=== PATIENT | female | born 1980 | race Caucasian/White ===

== ENCOUNTER 2018-09-19 07:07 | Inpatient (IN) | payer SELFPAY ==
[~2018-09-19] VITALS: Ht 147.3 cm; Wt 63.5 kg
[2018-09-19 07:43] LABS: BASOPHILS % (AUTO) 0.1 % (0.0-5.0); EOSINOPHILS % (AUTO) 0.9 % (0.0-8.0); HEMATOCRIT 48.3 % (36-48); MEAN CORPUSCULAR HGB CONC 33.4 g/dL (32.0-36.0); MEAN CORPUSCULAR VOLUME 89.9 fL (79-99); MONOCYTES % (AUTO) 3.7 % (3.0-13.0); NEUTROPHILS % (AUTO) 90.3 % (40.0-77.0); NUCLEATED RED BLOOD CELLS 0.1 % (0.0-0.19); PLATELET COUNT (AUTO) 255 K/uL (130-400); RED BLOOD CELL COUNT(AUTO) 5.37 MIL/uL (4.00-5.50); RED CELL DISTRIBUTION WIDTH 13.3 % (11.0-15.5)
[2018-09-19] MEDS ORDERED: MORPHINE SULFATE 4 MG/1ML SYG ONE ×3 (07:49→15:19)
[2018-09-19] MEDS ORDERED: SODIUM CHLORIDE 0.9% 1000ML 1,000 ML IV ONE ×3 (07:49→16:45)
[2018-09-19] MEDS ORDERED: ONDANSETRON HCL 4 MG/2 ML VIAL ONE ×2 (07:49→10:42)
[2018-09-19 07:50] LABS: CREATININE 0.7 mg/dL (0.5-1.5); POTASSIUM 4.2 mmol/L (3.5-5.1)
[2018-09-19 07:55] LABS: ALBUMIN 4.3 g/dL (3.5-5.0); BILIRUBIN,TOTAL 0.9 mg/dL (0.2-1.0)
[2018-09-19] MEDS ORDERED: IOHEXOL 350 MG/ML 100ML INFUS..BTL IV ONE (08:08)
[2018-09-19 10:39] LABS: APPEARANCE,URINE Clear (CLEAR); BILIRUBIN,URINE Negative (NEGATIVE); COLOR,URINE Yellow (YELLOW); GLUCOSE, URINE (UA) Negative (NEGATIVE); KETONES,URINE 40 mg/dL (NEGATIVE); LEUKOCYTE ESTERASE ,URINE Negative (NEGATIVE); NITRATE,URINE Negative (NEGATIVE); OCCULT BLOOD,URINE Negative (NEGATIVE); PROTEIN,URINE Negative (NEGATIVE); UROBILINOGEN,URINE 0.2 mg/dL (0.2-1.0)
[2018-09-19] MEDS ORDERED: FAMOTIDINE/PF 20 MG/2 ML VIAL IV ONE (10:43)
[2018-09-19 10:46] LABS: HCG,QUAL RESULT NEGATIVE (NEGATIVE)
[2018-09-19 10:47] LABS: BACTERIA,URINE Rare /HPF (None Seen); RBC,URINE 0-1 /HPF (0-1); SQUAMOUS EPITHELIAL CELL,UR Rare /HPF (0-2); WBC,URINE 0-1 /HPF (0-1)
[2018-09-19] MEDS ORDERED: SODIUM CHLORIDE 0.9% 250 ML IV ONE (11:13)
[2018-09-19] MEDS ORDERED: PROMETHAZINE HCL 25 MG/ML 1ML AMPULE IM ONE (11:13)
[2018-09-19] MEDS ORDERED: PROMETHAZINE HCL 25 MG/ML 1ML AMPULE IM PRN (17:30)
[2018-09-19] MEDS ORDERED: SODIUM CHLORIDE 0.9% 1000ML 1,000 ML IV SCH (17:30)
[2018-09-19] MEDS ORDERED: HYDRALAZINE HCL 20 MG/ML VIAL IV PRN (17:30)
[2018-09-19] MEDS ORDERED: ONDANSETRON HCL 4 MG/2 ML VIAL IVP PRN (17:30)
[2018-09-19 17:54] VITALS: BP 124/84
[2018-09-19] MEDS: ONDANSETRON HCL 4 MG/2 ML VIAL IV PRN (18:16)
[2018-09-19 19:35] VITALS: BP 122/90
[2018-09-19] MEDS ORDERED: LOSA25TA41 PO (20:19)
[2018-09-19] MEDS ORDERED: DESV100T PO (20:19)
[2018-09-19] MEDS ORDERED: HYDR-4030 PO (20:19)
[2018-09-19] MEDS ORDERED: TRAZ-187 PO (20:21)
--- NOTE | 2018-09-19 21:29 | NUR ---
HOME MEDS LISTED HOME MEDS. CONTACTED [employer] [employer] TO NOTIFY MEDS LISTED IN COMPUTER, BUT SINCE PATIENT IS NPO AT THIS TIME, SAID FOR DAY STAFF TO RE-EVALUATE AND DECIDE.
[2018-09-19] MEDS: FAMOTIDINE/PF 20 MG/2 ML VIAL IV SCH (22:38)
[2018-09-19] MEDS: SODIUM CHLORIDE 0.9% 1000ML 1,000 ML IV SCH (22:38)
[2018-09-19] MEDS ORDERED: MORPHINE SULFATE 2 MG/ML 1ML SYG IVP PRN (23:00)
[2018-09-19] MEDS ORDERED: MORPHINE SULFATE 2 MG/ML 1ML SYG ONE (23:25)
[2018-09-19 23:30] VITALS: BP 121/75
[2018-09-20] MEDS: ONDANSETRON HCL 4 MG/2 ML VIAL IV PRN (03:22)
[2018-09-20] MEDS: SODIUM CHLORIDE 0.9% 1000ML 1,000 ML IV SCH ×2 (03:29→13:29)
[2018-09-20 03:40] VITALS: BP 120/78
[2018-09-20 05:15] LABS: HEMATOCRIT 36.2 % (36-48); MEAN CORPUSCULAR HEMOGLOBIN 31.4 pg (27.0-33.0); MEAN CORPUSCULAR VOLUME 89.9 fL (79-99); PLATELET COUNT (AUTO) 204 K/uL (130-400); RED BLOOD CELL COUNT(AUTO) 4.03 MIL/uL (4.00-5.50); RED CELL DISTRIBUTION WIDTH 13.1 % (11.0-15.5); WHITE BLOOD COUNT (AUTO) 9.3 K/uL (4.8-10.8)
[2018-09-20 05:30] LABS: ALBUMIN 2.9 g/dL (3.5-5.0); BILIRUBIN,TOTAL 0.5 mg/dL (0.2-1.0); CREATININE 0.6 mg/dL (0.5-1.5); POTASSIUM 3.1 mmol/L (3.5-5.1); TOTAL PROTEIN, SERUM 5.7 g/dL (6.0-8.3)
[2018-09-20 08:00] VITALS: BP 120/80
[2018-09-20] MEDS: METOCLOPRAMIDE 10 MG/2 ML VIAL IVP SCH ×3 (09:25→16:28)
[2018-09-20] MEDS: FAMOTIDINE/PF 20 MG/2 ML VIAL IV SCH (09:25)
[2018-09-20] MEDS ORDERED: LIDOCAINE HCL-MPF 1% 2ML VIAL IVP PRN (11:15)
[2018-09-20] MEDS ORDERED: POTASSIUM CHLORIDE 20MEQ/100ML 100 ML IV PRN (11:15)
[2018-09-20] MEDS ORDERED: POTASSIUM CHLORIDE 10% ELIXIR 20 MEQ/15 ML UDCUP PO PRN (11:15)
[2018-09-20 11:40] VITALS: BP 112/74
[2018-09-20] MEDS ORDERED: ACETAMINOPHEN 325 MG TAB ONE (14:52)
[2018-09-20] MEDS: POTASSIUM CHLORIDE 20 MEQ ERTAB PO PRN ×2 (14:54→16:28)
[2018-09-20] MEDS ORDERED: ACETAMINOPHEN 325 MG TAB PO PRN (15:00)
--- NOTE | 2018-09-20 15:26 | NUR ---
Pt states she rec'd the flu shot in May of 2018. Addendum: 09/20/18 at 1528 by FIDENCIO GREGG RN RN Amended: Links added.
[2018-09-20 16:50] VITALS: BP 125/86
--- NOTE | 2018-09-20 19:00 | NUR ---
Discharge instructions provided in room with pt and family at side. Emphasis on dx, s/s to monitor for, and when to seek emergency care vs dial 911. Attempted to call Stephanie Watson (pt states is her PCP) to make follow up appt, but spoke with appt logistics clerkimelda Aguilar who stated pt's correctional case manager needed to update her case first, so he would be calling pt to schedule the appointment. No new rx. PIV removed from right arm, tip intact. Dressed with sterile 2x2 and band aid after hemostasis. [facility] staff for transport home via private car. Pt in stable condition at time of discharge.
== END 2018-09-20 19:06 | disposition home or self-care (01) | DRG 392 ==
LOC: EDH 07:07 → OBSVTOIN 07:08 → EDHIP 07:08 → 4BH 17:27
PROVIDERS: ADMIT Hospitalist; ATTEND Hospitalist
DX: R11.2 Nausea with vomiting, unspecified (principal); I10 Essential (primary) hypertension; F32.9 Major depressive disorder, single episode, unspecified; F41.9 Anxiety disorder, unspecified; Z72.0 Tobacco use; Z90.710 Acquired absence of both cervix and uterus; Z88.8 Allergy status to other drugs, medicaments and biological substances
CPT/HCPCS: 36415; 74177; 80053; 81001; 81025; 83690; 85025; 85027; 93005; 99291; G0378; J2270; J2405; J2550; J2765; J3490; J7030; Q9967

== ENCOUNTER 2019-04-21 14:21 | Emergency (ER) | payer OTHER ==
[~2019-04-21 14:21] MED LIST: DESV100T PO; HYDR-4030 PO; LOSA25TA41 PO; TRAZ-187 PO
[2019-04-21] MEDS ORDERED: ASPIRIN 325 MG TABLET ONE (14:35)
[2019-04-21 15:01] LABS: BASOPHILS % (AUTO) 0.7 % (0.0-5.0); EOSINOPHILS % (AUTO) 2.6 % (0.0-8.0); HEMATOCRIT 44.9 % (36-48); LYMPHOCYTES % (AUTO) 33.4 % (21.0-51.0); MEAN CORPUSCULAR HEMOGLOBIN 31.3 pg (27.0-33.0); MEAN CORPUSCULAR HGB CONC 34.7 g/dL (32.0-36.0); MEAN CORPUSCULAR VOLUME 90.2 fL (79-99); MONOCYTES % (AUTO) 8.5 % (3.0-13.0); NEUTROPHILS % (AUTO) 54.8 % (40.0-77.0); PLATELET COUNT (AUTO) 273 K/uL (130-400); RED BLOOD CELL COUNT(AUTO) 4.98 MIL/uL (4.00-5.50)
[2019-04-21 15:08] LABS: APPEARANCE,URINE Clear (CLEAR); BILIRUBIN,URINE Negative (NEGATIVE); COLOR,URINE Yellow (YELLOW); GLUCOSE, URINE (UA) Negative (NEGATIVE); KETONES,URINE Negative (NEGATIVE); LEUKOCYTE ESTERASE ,URINE Negative (NEGATIVE); NITRATE,URINE Negative (NEGATIVE); OCCULT BLOOD,URINE Negative (NEGATIVE); PROTEIN,URINE Negative (NEGATIVE); UROBILINOGEN,URINE 0.2 mg/dL (0.2-1.0)
[2019-04-21 15:13] LABS: CREATININE 0.8 mg/dL (0.5-1.5); POTASSIUM 3.6 mmol/L (3.5-5.1)
[2019-04-21] MEDS ORDERED: ACETAMINOPHEN 325 MG TAB ONE (15:16)
[2019-04-21] MEDS ORDERED: DiphenhydrAMINE HCL 50 MG/ML VIAL ONE (15:16)
[2019-04-21] MEDS ORDERED: SODIUM CHLORIDE 0.9% 500ML 500 ML IV ONE (15:17)
[2019-04-21] MEDS ORDERED: PROCHLORPERAZINE EDISYLATE 10 MG/2 ML VIAL ONE (15:17)
[2019-04-21 15:23] LABS: BILIRUBIN,TOTAL 0.3 mg/dL (0.2-1.0); TOTAL PROTEIN, SERUM 7.6 g/dL (6.0-8.3)
[2019-04-21 15:28] LABS: B-TYPE NATRIURETIC PEPTIDE 13 pg/mL (0-100)
== END 2019-04-21 16:11 | disposition home or self-care (01) ==
LOC: EDH 14:21
DX: I16.0 Hypertensive urgency (principal); G43.909 Migraine, unspecified, not intractable, without status migrainosus; F43.0 Acute stress reaction; R10.13 Epigastric pain; Z90.710 Acquired absence of both cervix and uterus; Z90.49 Acquired absence of other specified parts of digestive tract; Z88.1 Allergy status to other antibiotic agents; Z88.8 Allergy status to other drugs, medicaments and biological substances; Z98.890 Other specified postprocedural states
CPT/HCPCS: 36415; 70450; 71045; 80053; 81003; 82550; 83690; 83874; 83880; 84484; 85025; 93005; 96374; 96375; 99285; J0780; J1200; J7040

== ENCOUNTER 2019-11-10 11:01 | Emergency (ER) | payer OTHER ==
[2019-11-10] MEDS ORDERED: TETANUS/DIPHTHERIA TOXOID [ADULT] 0.5 ML VIAL IM ONE (11:25)
[2019-11-10] MEDS ORDERED: LIDOCAINE HCL 1% 20 ML VIAL ONE (11:27)
[2019-11-10] MEDS ORDERED: OCTYL 2-CYANOACRYLATE 1 EACH TP ONE ×2 (11:30→11:48)
== END 2019-11-10 12:48 | disposition home or self-care (01) ==
LOC: EDH 11:01
DX: S61.412A Laceration without foreign body of left hand, initial encounter (principal); I10 Essential (primary) hypertension; Z90.49 Acquired absence of other specified parts of digestive tract; Z90.710 Acquired absence of both cervix and uterus; Z98.890 Other specified postprocedural states; Z72.0 Tobacco use; Z88.1 Allergy status to other antibiotic agents; Z88.8 Allergy status to other drugs, medicaments and biological substances; X58.XXXA Exposure to other specified factors, initial encounter; Y93.89 Activity, other specified; Y92.89 Other specified places as the place of occurrence of the external cause; Y99.8 Other external cause status
CPT/HCPCS: 12041; 73130; 90471; 90714